=== PATIENT | female | born 1935 | race Caucasian/White ===

== ENCOUNTER → 2017-11-18 | Outpatient (CLI) | payer MEDICARE | LOC: MC.RAD 12:53 | DX: N63.24 Unspecified lump in the left breast, lower inner quadrant (principal); R92.1 Mammographic calcification found on diagnostic imaging of breast ==

== ENCOUNTER → 2018-02-15 | Outpatient (CLI) | payer MEDICARE, OTHER | LOC: COL.CARD 10:18 | DX: F03.90 Unspecified dementia, unspecified severity, without behavioral disturbance, psychotic disturbance, mood disturbance, and anxiety (principal) ==

== ENCOUNTER 2018-04-29 08:30 | Outpatient (RCR) | payer MEDICARE, OTHER | END 2018-06-02 | disposition home or self-care (01) | LOC: WSST | DX: F03.90 Unspecified dementia, unspecified severity, without behavioral disturbance, psychotic disturbance, mood disturbance, and anxiety (principal); G31.01 Pick's disease; F02.81 Dementia in other diseases classified elsewhere, unspecified severity, with behavioral disturbance | CPT/HCPCS: G9162-GN; G9163-GN ==

== ENCOUNTER → 2019-05-02 | Outpatient (CLI) | payer MEDICARE, OTHER ==
[~2019-05-02] MED LIST: ASPIRIN 32325 MG/TA1 PO; DULCOLAX S10 MG/SUPP RC; DUO-KAPS1 CAP PO; HCTZ12.5TAB PO; LEVOXYL0.112 MG PO; OSCAL 500 TAB500 MG PO; SEROQUEL 2525 MG/TAB PO; SYNTHROID0.125 MG/T PO; TYLENOL 325MG325 MG PO; VITAMIN C500 MG PO; ZOLOFT 50MG50 MG PO
== END ==
LOC: COL.VAS 04-22 14:15
DX: R20.9 Unspecified disturbances of skin sensation (principal)

== ENCOUNTER 2019-05-03 13:07 | Inpatient (IN) | payer MEDICARE, OTHER ==
[~2019-05-03] VITALS: Ht 162.6 cm; Wt 69.0 kg
[2019-05-03] MEDS ORDERED: SEROQUEL 2525 MG/TAB PO (13:18)
[2019-05-03] MEDS ORDERED: LEVOXYL0.112 MG PO (13:19)
[2019-05-03] MEDS ORDERED: ZOLOFT 50MG50 MG PO (13:19)
[2019-05-03] MEDS ORDERED: HCTZ12.5TAB PO (13:19)
[2019-05-03 14:31] LABS: HEMATOCRIT 45.7 % (37.0-47.0); HEMOGLOBIN 15.1 g/dl (12.5-16.0); MEAN CELL VOLUME 90 fl (80.0-100.0); MEAN CORPUSCULAR HEMOGLOBIN 30 pg (27.0-31.0); MEAN CORPUSCULAR HGB CONC 33 g/dl (33.0-37.0); MEAN PLATELET VOLUME 10.4 fl (7.4-10.4); PLATELET COUNT 232 K/mm3 (130-400); RED BLOOD COUNT 5.06 M/mm3 (4.10-5.30); REDCELL DISTRIBUTION WIDTH-CV 13.4 % (11.5-14.5)
[2019-05-03 14:40] LABS: PROTHROMBIN TIME 11.3 SECONDS (9.7-12.8)
[2019-05-03 14:43] LABS: ALBUMIN 4.5 gm/dL (3.5-5.0); BILIRUBIN,TOTAL 0.4 mg/dL (0.0-1.0); CREATININE, serum 0.88 (0.52-1.25); POTASSIUM 3.9 mmol/L (3.4-5.0); TOTAL PROTEIN 7.5 gm/dL (6.4-8.2)
[2019-05-03 14:55] LABS: BAND 6 % (0-10); LYMPHOCYTE 4 % (20.0-51.0); NEUTROPHILS 86 % (42.0-75.2); PLATELET ESTIMATE NORMAL (NORMAL)
[2019-05-03 14:56] LABS: STOMATOCYTE 1+
[2019-05-03 16:24] VITALS: BP 135/71; PULSE 85; TEMP 98
--- NOTE | 2019-05-03 19:17 | NUR ---
Patient has done well throughout the day. Daughter at bedside, patient is non verbal and will occassionally nod and say "OK". Incontinent of urine, daughter refuses catheter at this time. Sundar montez and SCD to LLE per orders. Pedal pulses intact. LLE appears shortened and externally rotated. Takes medications crushed in food per daughter, however does not have any difficulty with meals. Patient will be NPO after midnight. Reported off to operations supervisor 2nd shift.
[2019-05-03 20:57] VITALS: BP 107/57; PULSE 74; TEMP 99.1
--- NOTE | 2019-05-03 22:00 | NUR ---
PATIENT INCONTINENT OF URINE, MOANS SIGNIFICANTLY WITH REPOSITIONING. PLACED #16FR CHAWLA TO BSD AT THIS TIME. RETURN OF YELLOW URINE. PATIENT TOLERATED WITHOUT PROBLEM. IVF INFUSING TO LEFT FOREARM WITHOUT REDNESS OR SWELLING. IS NON VERBAL. TAKES HS MED CRUSHED IN APPLESAUCE.
[2019-05-03 22:21] LABS: MUCOUS Present /lpf; PH 5 (5-8); SQUAMOUS EPITHELIAL 20-50 /hpf; URINE APPEARANCE Cloudy; URINE BACTERIA Rare /hpf; URINE BILIRUBIN Negative (NEGATIVE); URINE BLOOD Negative (NEGATIVE); URINE COLOR Yellow; URINE GLUCOSE Negative (NEGATIVE); URINE KETONE Negative (NEGATIVE); URINE LEUKOCYTE ESTERASE Trace (NEGATIVE); URINE NITRATE Negative (NEGATIVE); URINE PROTEIN(semi-quant) Negative (NEGATIVE); URINE RBC 0-2 /hpf; URINE UROBILINOGEN Negative (NEGATIVE)
[2019-05-03 22:25] LABS: COLLECTION METHOD CATHETER
[2019-05-04] VITALS (13 sets, daily range): BP systolic 117–159; BP diastolic 46–80; PULSE 64–106; TEMP 97.5–99.1
--- NOTE | 2019-05-04 02:40 | NUR ---
Pt awake, watching TV. Merchant draining yellow urine.
--- NOTE | 2019-05-04 04:15 | NUR ---
MEDICATED WITH MORPHINE 2MG IVP FOR OBVIOUS PAIN WITH RT LEG MOVEMENT.
[2019-05-04 09:13] LABS: BASO % 0.3 % (0.0-2.0); EOS # 0.1 (0.0-0.7); EOS % 1.3 % (0-4.0); GRAN # 6.4 (1.4-6.5); HEMATOCRIT 41.3 % (37.0-47.0); HEMOGLOBIN 13.5 g/dl (12.5-16.0); LYMPH # 1.6 (1.2-3.4); LYMPH % 17.4 % (20.0-51.0); MEAN CELL VOLUME 90 fl (80.0-100.0); MEAN CORPUSCULAR HEMOGLOBIN 29 pg (27.0-31.0); MEAN CORPUSCULAR HGB CONC 33 g/dl (33.0-37.0); MEAN PLATELET VOLUME 10.4 fl (7.4-10.4); MONO % 10.7 % (1.7-9.3); PLATELET COUNT 175 K/mm3 (130-400); RED BLOOD COUNT 4.59 M/mm3 (4.10-5.30); REDCELL DISTRIBUTION WIDTH-CV 13.3 % (11.5-14.5)
--- NOTE | 2019-05-04 09:40 | NUR ---
Patient resting in bed. She has been awake alot, not sleeping, Her skin care specialist daughter at bedside. Anesthesia rounded. plan of care reviewed. Patient is almost nonverbal, did smile a few times. Merchant to DD, urine output adequate. She remains NPO, with IVF infusing. Scds ble & jaison.
--- NOTE | 2019-05-04 10:52 | NUR ---
MARISSA met with the patient and his daughter, Elvira Osuna (ph#[phone]), to discuss discharge plan. The patient has significant dementia. The patient lives in [place] with her daughter, Elvira. Elvira reports that the patient needs assistance with ADLs and that she has a walker available, when needed. She states that she helps the patient with her ADLs or her private duty caregiver does. The patient has a private duty caregiver from [facility] from [phone] when Elvira is at work. The patient's PCP is Dr. Pradip Marion and she receives her medications at [facility]. Elvira reports no difficulties obtaining her meds. The patient does not have advanced directives in EMR, but Elvira reports that the patient does have them completed and that she is the patient's DPOA-HC. She states that she can email the documents to MARISSA and that the patient's PCP's office should have a copy. MARISSA provided Elvira with MARISSA's email. MARISSA also contacted Ivon at the patient's PCP's office and requested a copy. The patient had a right hip fracture. MARISSA discussed post-acute rehab. The patient's daughter was agreeable to post-acute rehab for the patient. MARISSA presented and explained the Patient Choice Form and provided Elvira with Medicare.gov's list of SNF's in the [place] area. Elvira chose 1) [facility] 2) [facility]. Patient Choice Form signed by Elvira and she was provided a copy. MARISSA contacted and faxed a referral to both facilities. SW awaiting their screens.
--- NOTE | 2019-05-04 13:58 | NUR ---
Claudette, at [facility], reports that they are able to accept the patient for a skilled stay. SW to inform the patient's daughter and will continue to follow.
--- NOTE | 2019-05-04 14:00 | NUR ---
Patient to Or. Cleaned up prior to or. Teeth brushed. Shonda landa dd. Daughter to Or waiting room
--- NOTE | 2019-05-04 19:06 | NUR ---
Patient has returned from OR. ALert. Dinner ordered. Daughter at bedside. REport deniese
--- NOTE | 2019-05-04 20:00 | NUR ---
Pt feeds self dinner, grilled cheese and grapes. Does well. Drinking oral fluids well also. Is alert, non verbal. IVF infusing to left FA without problem. Has swanson to BSD with yellow urine. Rt hip with large bulky drsg D/I. Pt grimaces with movement of rt leg, [place] given with HS meds for pain.
[2019-05-05] VITALS: BP 122/76; PULSE 93; TEMP 97.8
--- NOTE | 2019-05-05 02:02 | NUR ---
PATIENT AWAKE, GRIMACES WHEN RT LEG MOVED. MEDICATED WITH NORCO 1 TAB PO AT THIS TIME.
[2019-05-05 04:14] VITALS: BP 142/74; PULSE 94; TEMP 97.6
--- NOTE | 2019-05-05 04:40 | NUR ---
Resting with eyes closed. Ice pack replaced to right hip.
[2019-05-05 06:26] LABS: BASO % 0.3 % (0.0-2.0); EOS # 0.1 (0.0-0.7); EOS % 1.1 % (0-4.0); GRAN # 8.2 (1.4-6.5); GRAN % 75.5 % (42.2-75.2); HEMATOCRIT 37.5 % (37.0-47.0); HEMOGLOBIN 12.6 g/dl (12.5-16.0); LYMPH # 1.3 (1.2-3.4); LYMPH % 12.1 % (20.0-51.0); MEAN CELL VOLUME 89 fl (80.0-100.0); MEAN CORPUSCULAR HEMOGLOBIN 30 pg (27.0-31.0); MEAN CORPUSCULAR HGB CONC 34 g/dl (33.0-37.0); MEAN PLATELET VOLUME 10.6 fl (7.4-10.4); MONO # 1.1 (0.1-0.6); MONO % 10.5 % (1.7-9.3); PLATELET COUNT 167 K/mm3 (130-400); RED BLOOD COUNT 4.21 M/mm3 (4.10-5.30); REDCELL DISTRIBUTION WIDTH-CV 13.5 % (11.5-14.5)
[2019-05-05 06:29] LABS: CALCIUM 8.2 mg/dL (8.4-10.2); CREATININE, serum 0.64 (0.52-1.25); POTASSIUM 3.7 mmol/L (3.4-5.0)
--- NOTE | 2019-05-05 08:00 | NUR ---
PATIENT IS ALERT, CONFUSED AND MOSTLY NON-VERBAL. PATIENT HAS HX OF SEVERE DEMENTIA AND LIVES AT HOME WITH DAUGHTER. RIGHT HIP DRESSING IS CD&I WITH OCCLUSIVE DRESSING AND ICE PACK INPLACE. SCD'S TO BLE. CHAWLA TO DD. IV FLUIDS INFUSING VIA PUMP INTO LEFT WRIST IV. PT/OT. AM MEDS CRUSHED AND GIVEN IN PUDDING. PATIENT DOES WELL WITH FINGER FOODS. NOT MUCH INTEREST IN DRINKING. NO N/V. HEAD TO TOE ASSESSMENT COMPLETE. BED ALARM ON. CALL LIGHT IN REACH.
[2019-05-05 08:10] VITALS: BP 124/74; PULSE 97; TEMP 97.4
--- NOTE | 2019-05-05 11:28 | NUR ---
First visit from the stock unloader. No needs right now.
--- NOTE | 2019-05-05 11:43 | NUR ---
MARISSA updated the patient's daughter, Elvira, about [facility]. The patient's daughter would like to pursue with the patient going there. MARISSA faxed updates to [facility] and [facility]. MARISSA to notify Raymond at [facility] of [facility] acceptance and will continue to follow.
[2019-05-05 12:10] VITALS: BP 117/69; PULSE 82; TEMP 97.6
--- NOTE | 2019-05-05 15:40 | NUR ---
PATIENT GIVEN A COMPLETE BED BATH, HAIR WASHED, GOWN AND LINENS CHANGED. DC'D CHAWLA PER ORDERS. BRIEF INPLACE. POST OP RIGHT HIP DRESSING REMOVED AND AQUACEL APPLIED. PATIENT REPOSITIONED TO COMFORT. BED ALARM ON. FAMILY NOW BACK IN ROOM
[2019-05-05 16:20] VITALS: BP 142/55; PULSE 90; TEMP 98.7
[2019-05-05 20:00] VITALS: BP 133/70; PULSE 96; TEMP 99.9
[2019-05-06 01:11] VITALS: BP 127/63; PULSE 98; TEMP 98.3
[2019-05-06 04:44] VITALS: BP 138/63; PULSE 86; TEMP 99.8
--- NOTE | 2019-05-06 06:25 | NUR ---
Patient has rested well throughout the night. Noted to be incontinent of urine x2 this shift. Continues to be mostly nonverbal and says "okay", but not much else. Takes pills crushed in yogurt with no problem. Noted to have discomfort with repositioning, but otherwise no indications of pain. Will report off to day shift nurse.
[2019-05-06 07:31] LABS: CALCIUM 7.8 mg/dL (8.4-10.2); CREATININE, serum 0.65 (0.52-1.25); POTASSIUM 3.4 mmol/L (3.4-5.0)
--- NOTE | 2019-05-06 08:52 | NUR ---
Patient sitting up eating breakfast. [employer] nurse assisting with cares. Pain appears in pain with movement, hospitalist notified & tylenol ordered. Am meds given with pudding crushed. Right hip aquacell dressing intact. TEds & scds. Swelling noted to Rle. Antoine ayoub.
[2019-05-06] MEDS ORDERED: ASPIRIN 32325 MG/TA1 PO (10:04)
[2019-05-06] MEDS ORDERED: OSCAL 500 TAB500 MG PO (10:04)
[2019-05-06] MEDS ORDERED: VITAMIN C500 MG PO (10:05)
[2019-05-06] MEDS ORDERED: DULCOLAX S10 MG/SUPP RC (10:05)
[2019-05-06] MEDS ORDERED: DUO-KAPS1 CAP PO (10:05)
[2019-05-06] MEDS ORDERED: SYNTHROID0.125 MG/T PO (10:05)
[2019-05-06 10:17] VITALS: BP 144/63; PULSE 88; TEMP 97.8
--- NOTE | 2019-05-06 10:49 | NUR ---
data analytics specialist ASSIST TO REPOSTION PATIENT IN BED. bRIEF DRY AT THIS TIME
[2019-05-06] MEDS ORDERED: TYLENOL 325MG325 MG PO (10:51)
[2019-05-06 12:39] VITALS: BP 144/63; PULSE 88; TEMP 97.8
--- NOTE | 2019-05-06 13:16 | NUR ---
The patient is to discharge today, 05/06, to [facility] for a skilled stay. Transportation was scheduled for 1430, via [facility]. MARISSA informed the patient's daughter, Elvira, and RN. They were both in agreeance to the time. MARISSA also presented and explained the IM form to the patient's daughter, Elvira. Elvira verbalized understanding, signed, and she was provided a copy. No additional needs at this time.
[2019-05-06 13:48] VITALS: BP 110/64; PULSE 96; TEMP 98.1
--- NOTE | 2019-05-06 15:01 | NUR ---
Patient discharging to [facility]. Report called to nurse at [facility]. Patient dressed & transfered to wheelchair 2 assist. Patient did very well with lunch & ate all her food. Tylenol for pain management. Hip dressing intact. Patient was incocntient of urise, pericare provided.
== END 2019-05-06 14:42 | DRG 470 ==
LOC: COL.ER 13:07 → JCC 13:49
PROVIDERS: Emergency Medicine; Nurse Practitioner Family; Orthopaedic Surgery; Physician Assistant; ADMIT Student in an Organized Health Care Education/Training Program
PROC: 0SR90JA Replacement of Right Hip Joint with Synthetic Substitute, Uncemented, Open Approach (ICD-10-PCS; principal; 2019-05-04 15:30)
DX: S72.001A Fracture of unspecified part of neck of right femur, initial encounter for closed fracture (principal); G30.9 Alzheimer's disease, unspecified; F02.80 Dementia in other diseases classified elsewhere, unspecified severity, without behavioral disturbance, psychotic disturbance, mood disturbance, and anxiety; W18.30XA Fall on same level, unspecified, initial encounter; E89.0 Postprocedural hypothyroidism; I10 Essential (primary) hypertension; D72.829 Elevated white blood cell count, unspecified; R73.9 Hyperglycemia, unspecified; Z90.710 Acquired absence of both cervix and uterus; Y92.029 Unspecified place in mobile home as the place of occurrence of the external cause
CPT/HCPCS: 99222-AI; 99231-AI; 99232-AI; 99239; A9284; C1776; J0690; J2270; J2704; J2795; J7120